=== PATIENT | male | born 2000 | race Caucasian/White ===

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

== ENCOUNTER 2020-04-17 19:54 | Emergency (ER) | payer BC, OTHER ==
[~2020-04-17] VITALS: Ht 188 cm; Wt 100.0 kg
[2020-04-17 20:34] LABS: BASO % 0.5 % (0.0-1.0); EOS # 0.1 10^3/uL (0.0-0.5); EOS % 0.9 % (0.0-3.0); HEMATOCRIT 43.5 % (42.0-52.0); HEMOGLOBIN 14.4 g/dl (13.5-17.5); LYMPH # 2.5 10^3/uL (1.5-5.0); LYMPH % 32.2 % (24.0-44.0); MEAN CORPUSCULAR HEMOGLOBIN 29.5 pg (27.0-33.0); MEAN CORPUSCULAR HGB CONC 33.1 g/dl (32.0-36.5); MEAN CORPUSCULAR VOLUME 89.1 fl (80.0-96.0); MONO # 0.6 10^3/uL (0.0-0.8); MONO % 7.4 % (0.0-5.0); NEUTROPHILS # 4.5 10^3/uL (1.5-8.5); NEUTROPHILS % 58.7 % (36.0-66.0); PLATELET COUNT, AUTOMATED 194 10^3/uL (150-450); RED BLOOD COUNT 4.88 10^6/uL (4.30-6.10); WHITE BLOOD COUNT 7.7 10^3/uL (4.0-10.0)
[2020-04-17] MEDS ORDERED: NS 1,000 ML IV ONE (21:00)
[2020-04-17] MEDS ORDERED: KETOROLAC 30 MG/ML 1ML VIAL IV ONE (21:00)
[2020-04-17 21:03] LABS: ALBUMIN 3.8 GM/DL (3.2-5.2); BILIRUBIN,DIRECT 0.2 MG/DL (0.0-0.2); TOTAL PROTEIN 6.7 GM/DL (6.4-8.2)
[2020-04-17] MEDS ORDERED: ISOVUE-370 76% 100ML VIAL As Ordered ONE (21:03)
--- NOTE | 2020-04-17 21:41 | REPVR ---
PROCEDURE INFORMATION: Exam: CT Abdomen And Pelvis With Contrast Exam date and time: 04/17/2020 9:17 PM Age: 19 years old Clinical indication: Abdominal pain; Flank; Right; Additional info: Right flank/abd pain TECHNIQUE: Imaging protocol: Computed tomography of the abdomen and pelvis with intravenous contrast. Axial, coronal and sagittal reformatted images were created and reviewed. Radiation optimization: All CT scans at this facility use at least one of these dose optimization techniques: automated exposure control; mA and/or kV adjustment per patient size (includes targeted exams where dose is matched to clinical indication); or iterative reconstruction. Contrast material: ISOVUE 370; Contrast volume: 100 ml; Contrast route: IV; COMPARISON: CR Hip, Ap,Lat 01/11/2017 1:32 PM FINDINGS: Liver: Unremarkable. Gallbladder and bile ducts: Subtle dependent hyperattenuation in the gallbladder lumen, possibly secondary to sludge and/or small stones. Pancreas: Unremarkable. Spleen: Coarse calcified splenic granulomata. Mild splenomegaly. Adrenals: Unremarkable. Kidneys and ureters: 2 mm nonobstructing left renal calculus. No hydronephrosis. Stomach and bowel: Status post gastric bypass surgery. No obstruction. Questionable mild multi focal small bowel wall thickening versus underdistention. No pneumatosis. Appendix: Normal. Intraperitoneal space: Trace nonspecific free pelvic fluid. No organized fluid collection. No free air. Vasculature: Unremarkable. No aneurysm. Lymph nodes: Multiple mildly prominent mesenteric lymph nodes, nonspecific in appearance. Bladder: Mild circumferential urinary bladder wall thickening, likely secondary to underdistention. Reproductive: Unremarkable. Bones/joints: No acute osseous abnormality. Soft tissues: Unremarkable. IMPRESSION: 1. Questionable mild multi focal small bowel wall thickening versus under distention. Mild nonspecific enteritis cannot be excluded. 2. Multiple mildly prominent mesenteric lymph nodes, likely reactive. Follow-up to resolution is recommended. 3. Additional findings, as above. Electronically signed by: Flakito Pennington On 04/17/2020 21:41:03 PM
[2020-04-17] MEDS ORDERED: MORPHINE 4 MG/ML 1ML VIAL/SYRINGE (J2270) IV ONE (22:00)
--- NOTE | 2020-04-17 22:54 | REPVR ---
PROCEDURE INFORMATION: Exam: US Abdomen Limited, Right Upper Quadrant Exam date and time: 04/17/2020 10:29 PM Age: 19 years old Clinical indication: Abdominal pain; Acute; Additional info: Ruq pain TECHNIQUE: Imaging protocol: Real-time ultrasound of the abdomen with image documentation. Examination was focused on the right upper quadrant. COMPARISON: CT ABD/PEL W/IV CONTRAST ONLY 04/17/2020 9:05 PM FINDINGS: Liver: Unremarkable. Gallbladder: Cholelithiasis without gallbladder wall thickening or pericholecystic fluid. Common bile duct: No stones. No ductal dilatation. Pancreas: Suboptimally visualized. Right kidney: No mass. No definite stones. No hydronephrosis. IMPRESSION: Cholelithiasis without sonographic evidence of acute cholecystitis. Electronically signed by: Flakito Pennington On 04/17/2020 22:53:31 PM
[2020-04-17 23:14] VITALS: BP 125/69
[2020-04-18] MEDS ORDERED: NORC1TAB7 PO (19:28)
== END 2020-04-17 23:18 | disposition home or self-care (01) ==
LOC: M ED 19:54
DX: K80.66 Calculus of gallbladder and bile duct with acute and chronic cholecystitis without obstruction (principal); I88.0 Nonspecific mesenteric lymphadenitis; N28.1 Cyst of kidney, acquired; Z98.84 Bariatric surgery status
CPT/HCPCS: 36415; 74177; 76705; 80047; 80076; 81001; 83690; 85025; 96361; 96374; 96375; 99284; J1885; J2270; Q9967

== ENCOUNTER 2020-04-18 16:02 | Emergency (ER) | payer BC, OTHER ==
[~2020-04-18] VITALS: Ht 188 cm; Wt 104.1 kg
[2020-04-18 16:34] LABS: BASO % 0.4 % (0.0-1.0); EOS # 0.1 10^3/uL (0.0-0.5); HEMATOCRIT 46.5 % (42.0-52.0); HEMOGLOBIN 15.7 g/dl (13.5-17.5); LYMPH # 2.2 10^3/uL (1.5-5.0); LYMPH % 31.5 % (24.0-44.0); MEAN CORPUSCULAR HEMOGLOBIN 30.2 pg (27.0-33.0); MEAN CORPUSCULAR HGB CONC 33.8 g/dl (32.0-36.5); MEAN CORPUSCULAR VOLUME 89.4 fl (80.0-96.0); MONO # 0.5 10^3/uL (0.0-0.8); MONO % 7.8 % (0.0-5.0); NEUTROPHILS # 4.1 10^3/uL (1.5-8.5); PLATELET COUNT, AUTOMATED 224 10^3/uL (150-450); WHITE BLOOD COUNT 6.9 10^3/uL (4.0-10.0)
[2020-04-18] MEDS ORDERED: MORPHINE 4 MG/ML 1ML VIAL/SYRINGE (J2270) IV ONE (16:45)
[2020-04-18] MEDS ORDERED: ONDANSETRON 4MG/2ML VIAL IV ONE (16:45)
[2020-04-18] MEDS ORDERED: NS 1,000 ML IV ONE (16:45)
[2020-04-18 17:05] LABS: ALT/SGPT 33 U/L (12-78); BILIRUBIN,DIRECT 0.3 MG/DL (0.0-0.2); BILIRUBIN,TOTAL 0.8 MG/DL (0.2-1.0); LIPASE 93 U/L (73-393); TOTAL PROTEIN 6.9 GM/DL (6.4-8.2)
--- NOTE | 2020-04-18 18:14 | REPVR ---
PROCEDURE INFORMATION: Exam: US Abdomen Limited, Right Upper Quadrant Exam date and time: 04/18/2020 5:49 PM Age: 19 years old Clinical indication: Abdominal pain; Acute; Additional info: Ruq pain, was seen yesterday for same TECHNIQUE: Imaging protocol: Real-time ultrasound of the abdomen with image documentation. Examination was focused on the right upper quadrant. COMPARISON: GALLBLADDER US 04/17/2020 10:17 PM FINDINGS: Liver: Unremarkable. Gallbladder: Cholelithiasis without gallbladder wall thickening or pericholecystic fluid. 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 This is a nonspecific finding. Common bile duct: No stones. No ductal dilatation. Pancreas: Unremarkable as visualized. Right kidney: No mass. No definite stones. No hydronephrosis. Intraperitoneal space: Trace nonspecific free fluid in the right upper quadrant. IMPRESSION: 1. Cholelithiasis without sonographic evidence of acute cholecystitis. 2. Trace nonspecific free fluid in the right upper quadrant. Electronically signed by: Flakito Pennington On 04/18/2020 18:13:05 PM
[2020-04-18 19:15] LABS: BLOOD UREA NITROGEN 16 MG/DL (7-18); CALCIUM LEVEL 8.9 MG/DL (8.5-10.1); CARBON DIOXIDE LEVEL 28 MEQ/L (21-32); CHLORIDE LEVEL 106 MEQ/L (98-107); CREATININE FOR GFR 0.81 MG/DL (0.70-1.30); GLUCOSE, FASTING 79 MG/DL (70-100); POTASSIUM SERUM 4.3 MEQ/L (3.5-5.1); SODIUM LEVEL 141 MEQ/L (136-145)
[2020-04-18] MEDS ORDERED: NORC1TAB7 PO (19:28)
[2020-04-18] MEDS ORDERED: NORCO 5/325MG TABLET (BULK FOR ED) PO ONE (19:30)
[2020-04-18 19:33] VITALS: BP 122/60
== END 2020-04-18 19:57 | disposition home or self-care (01) ==
LOC: M ED 16:02
DX: K80.80 Other cholelithiasis without obstruction (principal); Z98.84 Bariatric surgery status
CPT/HCPCS: 76705; 80048; 80076; 81001; 83690; 85025; 96361; 96374; 96375; 99284; J2270; J2405

== ENCOUNTER → 2020-04-30 | Outpatient (CLI) | payer BC, OTHER ==
[~2020-04-30] MED LIST: NORC1TAB7 PO
== END ==
LOC: M LABSMTC 14:16
PROVIDERS: ATTEND Thoracic Surgery (Cardiothoracic Vascular Surgery)
DX: Z01.812 Encounter for preprocedural laboratory examination (principal); Z11.59 Encounter for screening for other viral diseases
CPT/HCPCS: C9803; U0003

== ENCOUNTER 2021-02-15 22:04 | Emergency (ER) | payer BC, OTHER ==
[~2021-02-15] VITALS: Ht 188 cm; Wt 109.4 kg
--- NOTE | 2021-02-15 22:54 | REPVR ---
PROCEDURE INFORMATION: Exam: XR Right Ankle Exam date and time: 02/15/2021 10:26 PM Age: 20 years old Clinical indication: Pain; Ankle; Right; Additional info: Injury TECHNIQUE: Imaging protocol: XR Right ankle. Views: 3 or more views. COMPARISON: CR Ankle, complete 11/13/2018 8:54 PM FINDINGS: Bones/joints: Normal osseous alignment. No acute fracture. No asymmetric ankle mortise widening. Fifth metatarsal base is intact. No osteochondral lesion of the talar dome. No evidence of osseous tarsal coalition. No concerning bone lesion. Joint spaces are well maintained. Soft tissues: Diffuse soft tissue swelling is present around the ankle. IMPRESSION: Diffuse ankle soft tissue swelling, with no evidence of acute fracture. Electronically signed by: Stevo Rosas On 02/15/2021 22:54:42 PM
[2021-02-15] MEDS ORDERED: ACETAMINOPHEN 500 MG TAB PO ONE (23:15)
[2021-02-15 23:40] VITALS: BP 130/65
== END 2021-02-15 23:47 | disposition home or self-care (01) ==
LOC: M ED 22:04
DX: S93.401A Sprain of unspecified ligament of right ankle, initial encounter (principal); Y93.51 Activity, roller skating (inline) and skateboarding; Y92.9 Unspecified place or not applicable; Y99.9 Unspecified external cause status

== ENCOUNTER → 2022-06-22 | Outpatient (REF) | payer SELFPAY | LOC: M LAB REF 12:21 | PROVIDERS: ATTEND Physician Assistant | DX: J02.9 Acute pharyngitis, unspecified (principal) ==

== ENCOUNTER → 2022-06-23 | Outpatient (REF) | payer SELFPAY ==
[2022-06-23 18:44] LABS: GC DNA AMPLIFICATION NEGATIVE (NEGATIVE)
== END ==
LOC: M LAB REF 16:03
PROVIDERS: ATTEND Physician Assistant
DX: R30.0 Dysuria (principal); J02.9 Acute pharyngitis, unspecified

== ENCOUNTER 2022-09-04 21:29 | Emergency (ER) | payer OTHER, BC ==
[~2022-09-04] VITALS: Ht 188 cm; Wt 109.1 kg
[2022-09-04] MEDS ORDERED: ALBUTEROL 90 MCG/ACT 8GM HFA INHALER INH ONE (22:35)
[2022-09-04] MEDS ORDERED: ALBU6.7H6 INH (23:48)
[2022-09-05 00:15] VITALS: BP 132/82
== END 2022-09-05 00:16 | disposition home or self-care (01) ==
LOC: M ED 21:29
DX: B34.8 Other viral infections of unspecified site (principal); Z79.51 Long term (current) use of inhaled steroids

== ENCOUNTER → 2023-02-09 | Outpatient (CLI) | payer BC, OTHER ==
[~2023-02-09] MED LIST changes: +ALBU6.7H6 INH
== END ==
LOC: M OUTALCOH 08:05
PROVIDERS: ATTEND Psychiatry & Neurology Psychiatry
DX: Z13.39 Encounter for screening examination for other mental health and behavioral disorders (principal)

== ENCOUNTER 2023-02-16 14:43 | Outpatient (RCR) | payer BC, OTHER | END 2023-03-04 | LOC: M OUTALCOH 14:43 | PROVIDERS: ATTEND Psychiatry & Neurology Psychiatry | DX: Z03.89 Encounter for observation for other suspected diseases and conditions ruled out (principal) ==

== ENCOUNTER → 2024-07-14 | Outpatient (REF) | payer BC, OTHER | LOC: M SFHCPLAZ 10:44 | PROVIDERS: ATTEND Student in an Organized Health Care Education/Training Program | DX: Z98.890 Other specified postprocedural states (principal); Z53.8 Procedure and treatment not carried out for other reasons ==

== ENCOUNTER → 2024-07-29 | Outpatient (CLI) | payer BC ==
[2024-07-29 14:20] LABS: HEMATOCRIT 48.5 % (42.0-52.0); HEMOGLOBIN 16.4 g/dl (13.5-17.5); MEAN CORPUSCULAR HEMOGLOBIN 30.7 pg (27.0-33.0); MEAN CORPUSCULAR HGB CONC 33.8 g/dl (32.0-36.5); MEAN CORPUSCULAR VOLUME 90.8 fl (80.0-96.0); PLATELET COUNT, AUTOMATED 241 10^3/uL (150-450); RED BLOOD COUNT 5.34 10^6/uL (4.30-6.10); WHITE BLOOD COUNT 4.7 10^3/uL (4.0-10.0)
[2024-07-29 14:25] LABS: IRON (FE) 227 UG/DL (65-175)
[2024-07-29 14:26] LABS: ALKALINE PHOSPHATASE 58 U/L (46-116); ALT/SGPT 23 U/L (7.0-40); AST/SGOT 21 U/L (<34); BILIRUBIN,TOTAL 1.2 MG/DL (0.3-1.2); BLOOD UREA NITROGEN 11 MG/DL (9-23); CALCIUM LEVEL 9.4 MG/DL (8.5-10.1); CARBON DIOXIDE LEVEL 30 MMOL/L (20-31); CHLORIDE LEVEL 106 MMOL/L (98-107); CHOLESTEROL LEVEL 128 MG/DL (<200); CHOLESTEROL RISK RATIO 2.36 (<5); CREATININE FOR GFR 0.99 MG/DL (0.70-1.30); GLOMERULAR FILTRATION RATE > 60.0 (>60); GLUCOSE, FASTING 84 MG/DL (60-100); HDL CHOLESTEROL 54.2 MG/DL (>40); LDL CHOLESTEROL 60.2 MG/DL (<100); MAGNESIUM LEVEL 1.6 MG/DL (1.8-2.4); NON-HDL-C 73.8 MG/DL; PERCENT SATURATION 70.5 % (19.7-50.0); PHOSPHORUS LEVEL 4.1 MG/DL (2.5-4.9); POTASSIUM SERUM 4.7 MMOL/L (3.5-5.1); PTH INTACT 47.8 PG/ML (18.5-88.0); SODIUM LEVEL 139 MMOL/L (136-145); TOTAL IRON BINDING CAPACITY 322 UG/DL (250-425); TOTAL PROTEIN 6.8 G/DL (5.7-8.2); TRIGLYCERIDES LEVEL 68 MG/DL (<150)
[2024-07-29 14:31] LABS: TOTAL 25(OH) VITAMIN D 30.9 NG/ML (20.0-100.0); VITAMIN B12 LEVEL 203 PG/ML (211-911)
[2024-07-29 14:36] LABS: FOLATE 14.2 NG/ML (>5.4)
== END ==
LOC: M PLALAB 09:22
PROVIDERS: ATTEND Student in an Organized Health Care Education/Training Program
DX: Z98.890 Other specified postprocedural states (principal)

== ENCOUNTER 2025-09-04 08:23 | Emergency (ER) | payer BC, OTHER, SELFPAY ==
[~2025-09-04] VITALS: Ht 188 cm; Wt 124.8 kg
[2025-09-04 08:25] VITALS: BP 141/81; TEMP 97.9; O2SAT 99
[2025-09-04] MEDS ORDERED: HYDR50TA70 (08:30)
[2025-09-04] MEDS ORDERED: CYCL-707 (08:30)
[2025-09-04] MEDS ORDERED: PRED20TA (08:30)
[2025-09-04] MEDS ORDERED: PRED10TA2 PO (11:18)
[2025-09-04] MEDS ORDERED: GABA-1172 PO (11:18)
== END 2025-09-04 11:32 | disposition home or self-care (01) ==
LOC: M ED 08:23
DX: M54.31 Sciatica, right side (principal); Z98.84 Bariatric surgery status; Z79.52 Long term (current) use of systemic steroids; Z79.899 Other long term (current) drug therapy